=== PATIENT | male | born 1955 | race Caucasian/White ===

== ENCOUNTER 2022-02-07 07:24 | Inpatient (IN) | payer MEDICAID, SELFPAY ==
[2022-02-07] VITALS (9 sets, daily range): BP systolic 113–130; BP diastolic 58–74; PULSE 81–94; RESP 16–25; TEMP 36.3–37.2; O2SAT 95–100; BMI 18.4; BMI 17.6
--- NOTE | 2022-02-07 07:59 | CT_ITS ---
HISTORY: weakness, difficulty ambulating. TECHNIQUE: Multiple axial images were obtained of the head without intravenous contrast. A radiation dose optimization technique was used for this scan. 246 images. COMPARISON: None. FINDINGS: BRAIN PARENCHYMA: Multiple foci and zones of low attenuation in the bilateral cerebral white matter compatible with chronic small vessel ischemic gliosis. No acute intra-axial hemorrhage identified. CSF SPACES: Mild generalized volume loss. No midline shift or other significant mass effect. No acute extra-axial hemorrhage seen. OTHER: Intact calvarium. No significant air fluid levels in the paranasal sinuses or mastoid air cells. Unremarkable orbits. CT/Brain/Head without Contrast IMPRESSION: No acute intracranial process identified. Mild chronic involutional and white matter changes. Electronically Signed: Cora Brantley MD at 8:39 EST ,
--- NOTE | 2022-02-07 08:00 | EKG12_ITS ---
Test Reason : WEAKNESS Blood Pressure : / mmHG Vent. Rate : 089 BPM Atrial Rate : 089 BPM P-R Int : 160 ms QRS Dur : 100 ms QT Int : 440 ms P-R-T Axes : 078 060 065 degrees QTc Int : 535 ms Sinus rhythm with Fusion complexes Nonspecific ST abnormality Prolonged QT Abnormal ECG No previous ECGs available Confirmed by SPARKLE GIRON, JENNIFER ([id number]), scientific publications editor ARAM MCKINNON ([id number]) on 02/10/2022 8:38:30 AM Referred By: NOHEMI Confirmed By:JENNIFER VILLAGRAN MD
[2022-02-07] MEDS: 0.9% Normal Saline 1,000 ML 1000 ML IV (08:09)
--- NOTE | 2022-02-07 08:13 | EDS_ITS ---
HPI History of Present Illness Chief Complaint: Weakness Informant: patient and family Narrative Narrative: Patient is a 66-year-old male with no known medical history presenting with generalized weakness. Patient got sick around January 24 per his grandson. Tim blunt states he had a flulike illness. For the past few days he has had significantly increased weakness, decreased oral intake and now cannot walk. Patient lives with his significant other. She had the grandson take him in today. Patient previously been refusing any medical care. Yesterday and his bottom tooth fell out. Patient is a history of pretty significant dental issues and they are not sure if he has some type of dental infection. Patient's had decreased urine output as well as decreased bowel movements. Currently denies any pain. No fevers reported. There has been a mild cough. Patient drinks a sixpack of beer daily and uses marijuana. Denies any history of anything similar to this in the past. No other complaints at this time. No report of any falls. [facility] Medical History Substance abuse Home Medications NK 02/07/22 [History Last Taken Unknown] Allergy/AdvReac Type Severity Reaction Status Date / Time No Known Allergies Allergy Verified 02/07/22 07:25 Surgical History no surgical history Social History Smoking Status: Never smoker ROS ROS ED Constitutional Constitutional ED: Denies chills or fever(s) Eyes Eyes: Denies change in vision ENT ENT ED: Reports other Details: dental pain ; Denies rhinorrhea or sore throat Cardiovascular Cardiovascular: Denies chest pain or palpitations Respiratory/Chest Respiratory/Chest: Reports cough; Denies dyspnea Gastrointestinal Gastrointestinal: Reports constipation; Denies abdominal pain, nausea or vomiting Genitourinary Genitourinary ED: Reports other Details: decreased urination Musculoskeletal Musculoskeletal: Reports other Details: right lower leg swelling ; Denies arthralgias or myalgias Integumentary Denies rash Neurologic Neurologic: Reports weakness; Denies headache(s) or paresthesias Psychiatric Psychiatric: Denies anxiety Hematologic/Lymphatic Hematologic/Lymphatic: Denies easy bleeding or easy bruising EXAM Physical Exam Const Vital Signs: 02/07/22 07:26 02/07/22 07:31 02/07/22 07:31 Temperature 98.5 F 98.5 F Temperature Source Temporal Temporal Pulse Rate 93 94 Respiratory Rate 25 H 17 Respiratory Effort Normal Non-Labored Respiratory Pattern Normal Blood Pressure 130/65 H 113/65 Blood Pressure Mean 86 81 Pulse Ox 100 100 Oxygen Delivery Method Room Air Room Air Positive cachectic and unkempt General Appearance ED: unkempt and cachectic Nutritional Appearance: cachectic HEENT Reports dry mucous membranes HEENT Narrative: Cerumen impaction bilaterally. Significantly poor dentition with multiple missing teeth. Dried blood in the mouth but no obvious source of bleeding. No obvious dental abscess. No jaw swelling appreciated. Sublingual mucosa is soft. Negative for trauma Mouth ED: Yes dry mucous membranes Mouth: dry mucous membranes Eyes PERRL and EOMs intact bilaterally Eyes Narrative: Conjunctival injection bilaterally Neck supple and no JVD Resp normal respiratory effort Resp Narrative: Diminished breath sounds at the bases Cardio regular rate, regular rhythm and no murmurs GI normal to inspection, nondistended, normoactive bowel sounds and non-tender Back/Spine no CVA tenderness Extremity Extremity Narrative: Mild nonpitting edema of the right lower extremity which is asymmetric. Neuro Neuro Narrative: No focal deficits appreciated. Sensorium / Orientation: alert and orientation impaired Motor Exam: general weakness Psych mental status grossly normal Appearance: unkempt Skin no rashes or lesions noted and no wounds MDM MDM MDM Narrative Medical decision making narrative: Patient evaluated with generalized weakness as well as decreased oral intake. On exam patient is cachectic and extremely dehydrated appearing. He smells of old urine and is unkempt. Concern for infection however given his altered mental status stroke, intracranial hemorrhage and electrolyte abnormalities are also on the differential. CBC is largely normal as well as is his PT and PTT. BMP unremarkable. Lactate is elevated at 2.9 and patient's procalcitonin is elevated at 2.67. Chest x-ray interpreted myself as well as radiology shows mild atelectasis or inflammation of the right lung base. Given his recent illness and weakness I am concerned for possible aspiration pneumonia. He will be covered with antibiotics for this. In addition urinalysis is highly consistent with infection and urine culture is sent. Patient is given IV fluids in the ER. He does have asymmetric swelling of his leg and a venous duplex obtained which is negative for any acute process. Patient be mated for IV antibiotics, hydration and further evaluation of his debility/weakness. Patient and family agreeable this plan of care. Lab Data Attestation: I reviewed the patient's lab results. Labs: Laboratory Results - last 24 hr 02/07/22 02/07/22 02/07/22 07:50 07:50 07:50 WBC 8.0 RBC 4.90 Hgb 15.9 Hct 48.4 MCV 98.8 H MCH 32.4 H MCHC 32.9 RDW Std Deviation 49.6 H RDW Coeff of [place] 13.6 Plt Count 264 MPV 10.1 Immature Gran % (Auto) 0.500 Neut % (Auto) 72.3 H Lymph % (Auto) 14.4 L Hardy % (Auto) 10.7 H Eos % (Auto) 1.3 Baso % (Auto) 0.8 Absolute Neuts (auto) 5.8 Absolute Lymphs (auto) 1.15 Nucleated RBC % 0 PT 13.9 INR 1.1 APTT 25.7 Sodium 140 Potassium 3.5 Chloride 107 Carbon Dioxide 21.0 Anion Gap 12 BUN 24 H Creatinine 0.99 Estim Creat Clear Calc 65.79 Est GFR (MDRD) Af Amer 97 Est GFR (MDRD) Non-Af 81 BUN/Creatinine Ratio 24.2 H Glucose 129 H Lactic Acid Calcium 9.3 Magnesium Total Bilirubin 1.40 H AST 52 H ALT 41 Alkaline Phosphatase 66 Troponin I High Sens 22 Total Protein 7.7 Albumin 2.7 L Globulin 5.0 H Albumin/Globulin Ratio 0.5 L Procalcitonin Urine Color Urine Clarity Urine pH Ur Specific [place] Urine Protein Urine Glucose (UA) Urine Ketones Urine Occult Blood Urine Nitrite Urine Bilirubin Urine Urobilinogen Ur Leukocyte Esterase Urine RBC Urine WBC Ur Squamous Epith Cells Urine Bacteria Urine Mucus 02/07/22 02/07/22 02/07/22 07:50 07:50 07:50 WBC RBC Hgb Hct MCV MCH MCHC RDW Std Deviation RDW Coeff of [place] Plt Count MPV Immature Gran % (Auto) Neut % (Auto) Lymph % (Auto) Hardy % (Auto) Eos % (Auto) Baso % (Auto) Absolute Neuts (auto) Absolute Lymphs (auto) Nucleated RBC % PT INR APTT Sodium Potassium Chloride Carbon Dioxide Anion Gap BUN Creatinine Estim Creat Clear Calc Est GFR (MDRD) Af Amer Est GFR (MDRD) Non-Af BUN/Creatinine Ratio Glucose Lactic Acid 2.9 H* Calcium Magnesium 2.8 H Total Bilirubin AST ALT Alkaline Phosphatase Troponin I High Sens Total Protein Albumin Globulin Albumin/Globulin Ratio Procalcitonin 0.67 H Urine Color Urine Clarity Urine pH Ur Specific [place] Urine Protein Urine Glucose (UA) Urine Ketones Urine Occult Blood Urine Nitrite Urine Bilirubin Urine Urobilinogen Ur Leukocyte Esterase Urine RBC Urine WBC Ur Squamous Epith Cells Urine Bacteria Urine Mucus 02/07/22 08:07 WBC RBC Hgb Hct MCV MCH MCHC RDW Std Deviation RDW Coeff of [place] Plt Count MPV Immature Gran % (Auto) Neut % (Auto) Lymph % (Auto) Hardy % (Auto) Eos % (Auto) Baso % (Auto) Absolute Neuts (auto) Absolute Lymphs (auto) Nucleated RBC % PT INR APTT Sodium Potassium Chloride Carbon Dioxide Anion Gap BUN Creatinine Estim Creat Clear Calc Est GFR (MDRD) Af Amer Est GFR (MDRD) Non-Af BUN/Creatinine Ratio Glucose Lactic Acid Calcium Magnesium Total Bilirubin AST ALT Alkaline Phosphatase Troponin I High Sens Total Protein Albumin Globulin Albumin/Globulin Ratio Procalcitonin Urine Color Yellow Urine Clarity Clear Urine pH 7.0 Ur Specific [place] 1.015 Urine Protein 30 H Urine Glucose (UA) Normal Urine Ketones 15 H Urine Occult Blood 10 H Urine Nitrite Positive H Urine Bilirubin 3 H Urine Urobilinogen 4 H Ur Leukocyte Esterase 500 H Urine RBC 0-5 SEEN Urine WBC 5-10 SEEN Ur Squamous Epith Cells 0 SEEN Urine Bacteria 1+ Urine Mucus 0 SEEN Radiography Diagnostic Testing: Clinical Impression(s) from Imaging Studies Brain CT 02/07/22 07:59 IMPRESSION: No acute intracranial process identified. Mild chronic involutional and white matter changes. Electronically Signed: Cora Brantley MD at 8:39 EST Reading Location ID and State: [facility] / [place] Tel , Service support , Venous Doppler Study 02/07/22 08:15 Interpretation Summary Deep veins of the right lower extremity are patent and compressible segmentally. There is no evidence of right lower extremity deep vein thrombosis. The right great saphenous vein appears patent and compressible segmentally. Ordering Physician: Lorelei Mckenna Referring Physician: NO PCP Performed By: Jackie Goyal, GLORIA, RVT Chest X-Ray 02/07/22 08:26 IMPRESSION: Mild atelectasis or inflammation in the right lung base. Electronically Signed: Cora Brantley MD at 8:36 EST , Rhythm Strip Rhythm Strip: Sinus Rhythm Rate: 89 Ectopy: None EKG Initial EKG: Attestation: I personally reviewed and interpreted this EKG as follows: Interpretation: Sinus Rhythm Comments: Normal sinus rhythm at a rate of 89 with some fusion complexes Nonspecific ST segment changes Prolonged QTC of 535 Compared to prior EKG QTC is mildly more prolonged, improvement of T wave inversions in 1 and aVL Discharge Plan Dx/Rx/DC Orders Clinical Impression: Failure to thrive, Pneumonia, Acute UTI, Alcohol dependence Disposition Disposition: Acute Care [facility] Discharge Date/Time: 02/07/22 10:52
--- NOTE | 2022-02-07 08:15 | VDLE_ITS ---
Reason For Study: RLE SWELLING RIGHT GSV is normal. CFV is compressible, spontaneous, phasic, competent and demonstrates normal augmentation. FV is compressible, spontaneous, phasic, competent and demonstrates normal augmentation. POP V is compressible, spontaneous, phasic, competent and demonstrates normal augmentation. T/P Trunk is compressible. PTV is compressible. RT PerV is compressible. Procedure This is a venous duplex using B-mode, color flow and spectral Doppler. Exam performed in department. A preliminary report was called and/or faxed to ED. VL/Venous Duplex US, Unilateral Interpretation Summary Deep veins of the right lower extremity are patent and compressible segmentally . There is no evidence of right lower extremity deep vein thrombosis. The right great sapheno us vein appears patent and compressible segmentally. Ordering Physician: Lorelei Mckenna Referring Physician: NO PCP Performed By: Jackie Goyal, GLORIA, RVT
[2022-02-07 08:25] LABS: Mucous, Urine 0 SEEN /hpf (<or=2+); Squamous Epithelial Cells - UA 0 SEEN /hpf (0-5)
[2022-02-07 08:25] LABS: Absolute Lymphocyte Count 1.15 X10^3/uL (0.83-4.51); Absolute Neutrophil Count 5.8 X10^3/uL (2.0-7.7); Basophil# 0.06 X10^3/uL; Basophil% 0.8 % (0-1); Eosinophils% 1.3 % (0-5); Hematocrit 48.4 % (40-54); Hemoglobin 15.9 g/dL (13.0-16.5); Lymphocyte # 1.15 X10^3/ul (0.83-4.51); Lymphocyte % 14.4 % (19-41); Mean Corp Hgb Conc 32.9 g/dL (32-36); Mean Corpuscular Hgb 32.4 pg (27.0-32.0); Mean Corpuscular Volume 98.8 fL (80-94); Mean Platelet Vol. 10.1 fl (6.2-12.0); Monocyte# 0.85 X10^3/uL; Monocyte% 10.7 % (0-10); NRBC Flagged by Analyzer 0 % (0-5); Neutrophil # 5.78 X10^3/uL (2.7-7.7); Neutrophil % 72.3 % (47-70); Platelet Count 264 K/mm3 (150-450); RBC Distribution Width CV 13.6 % (11.6-14.6); RBC Distribution Width SD 49.6 fl (35.1-43.9)
--- NOTE | 2022-02-07 08:26 | RAD_ITS ---
HISTORY: Weakness, confusion, dental infection. TECHNIQUE: XR Chest 1 View. COMPARISON: None. FINDINGS: CARDIOMEDIASTINAL BORDERS: Cardiac silhouette within normal limits in size. Mediastinal contour unremarkable. LUNGS: Mild opacity in the right mid to lower lung. PLEURA: No pleural effusion or pneumothorax seen. OSSEOUS STRUCTURES: Unremarkable. RAD/Chest 1 View (Portable) IMPRESSION: Mild atelectasis or inflammation in the right lung base. Electronically Signed: Cora Brantley MD at 8:36 EST ,
--- NOTE | 2022-02-07 08:30 | NURSING ---
CONTACTED AL FOR AUTHORIZATION 02/07/22 8:30 AM
[2022-02-07 08:38] LABS: Color, Urine Yellow (Yellow); Glucose, Dipstick Normal (Normal); Ketone-Dipstick 15 mg/dl (Negative); Leukocyte Esterase-Dipstick 500 /ul (Negative); Nitrite-Dipstick Positive (Negative); Occult Blood-Urine 10 /ul (Negative); Protein-Dipstick 30 mg/dl (Negative); Specific Gravity, Urine 1.015 (1.002-1.030); Urine Clarity Clear (Clear); Urine Urobilinogen 4 mg/dl (Normal)
--- NOTE | 2022-02-07 08:44 | NURSING ---
[place] NOTIFICATION I.D. NUMBER [id number]
[2022-02-07 08:49] LABS: ALB/GLOB Ratio 0.5 RATIO (0.9-2.4); AST(SGOT) 52 U/L (15-37); Alanine Aminotransfer ALT/SGPT 41 U/L (16-61); Albumin, Serum 2.7 g/dL (3.2-5.0); Alkaline Phosphatase 66 U/L (45-117); Anion Gap 12 (5-15); BUN 24 mg/dL (7-18); BUN/Creat Ratio 24.2 RATIO (10-20); Calcium,Total 9.3 mg/dL (8.5-10.1); Chloride 107 mmol/L (98-107); Creatinine, Serum 0.99 mg/dL (0.70-1.30); EST Glomerular Filtration Rate 81 mL/min (>60); Est Glom Filt Rate - Afr Amer 97 mL/min (>60); Estimated Creatinine Clearance 65.79 ml/min; Glucose 129 mg/dL (74-106); Potassium 3.5 mmol/L (3.5-5.1); Protein, Total 7.7 g/dL (6.4-8.2); Sodium Level 140 mmol/L (136-145); Troponin-I HS 22 pg/mL (3.0-78.0)
[2022-02-07 08:51] LABS: Bacteria 1+ /hpf (None Seen); Red Blood Cells-Urine 0-5 SEEN /hpf (0-5); Urine Bilirubin Dipstick 3 mg/dL (Negative); White Blood Cells 5-10 SEEN /hpf (0-5)
[2022-02-07 08:54] LABS: Procalcitonin 0.67 ng/mL (0.00-0.09)
[2022-02-07 08:58] LABS: Lactic Acid 2.9 mmol/L (0.4-1.9)
--- NOTE | 2022-02-07 09:01 | NURSING ---
CALL FROM LAB, LACTIC ACID 2.9 , DR. FLORES AWARE
[2022-02-07 09:16] LABS: International Normalized Ratio 1.1; Partial Thromboplast Time 25.7 Seconds (24.1-36.2); Prothrombin Time (Protime)PT. 13.9 SECONDS (11.7-14.9)
--- NOTE | 2022-02-07 10:03 | PCM.HP.STD ---
HPI - General General Date of Admission: 02/07/22 Date of Service: 02/07/22 Chief Complaint: Confused, awake, generalized weakness, not able to walk. Chronic alcoholic HPI Narrative GIBSON MANZANARES, is a 66 M in poor general health was brought to EMS for generalized weakness, not able to walk, decreased oral intake and sick since January 24 as per his grandson. Patient had flulike symptoms, increased cough for about 2 to 3 weeks, mainly dry. Patient also has bad oral hygiene with dental caries. His bottom teeth fell out yesterday. Patient denies burning micturition but has decreased urine output and bowel movement. Patient also not able to stand up or walk. Further history cannot be obtained as patient very confused disoriented to time and place. He can only tell his name. As per ER physician, no reported history of fall. Vitals in the ED was in acceptable limit. Breathing nonlabored. Labs EKG reviewed Social history:Patient drinks 6 pack of beer daily and uses marijuana. Denies smoking. Family history denies family history of chronic alcohol dependence or cancer but patient is not in good mental status therefore is not reliable [facility] Medical History Substance abuse Home Medications NK 02/07/22 [History Last Taken Unknown] Allergy/AdvReac Type Severity Reaction Status Date / Time No Known Allergies Allergy Verified 02/07/22 07:25 Surgical History no surgical history Social History Smoking Status: Never smoker ROS ROS Narrative 14 complete ROS is incomplete and unobtainable except as mentioned in HPI as patient is very confused, disoriented to time and place. He wanted to hold his name and year. He denies burning micturition. He denies hematemesis melena or GI bleed. Review of Systems ROS Unobtainable: due to encephalopathy and due to mental condition Vital Signs Vital Signs Vital Signs: 02/07/22 07:26 02/07/22 07:31 02/07/22 07:31 Temperature 98.5 F 98.5 F Temperature Source Temporal Temporal Pulse Rate 93 94 Respiratory Rate 25 H 17 Respiratory Effort Normal Non-Labored Respiratory Pattern Normal Blood Pressure 130/65 H 113/65 Blood Pressure Mean 86 81 Pulse Ox 100 100 Oxygen Delivery Method Room Air Room Air Weight Weight: 136 lb 0.403 oz Body Mass Index (BMI) 18.4 Physical Exam Narrative Physical exam General: Awake, oriented x1, looks generalized illness and fatigued, worn out. Severe protein calorie malnutrition HEENT: Atraumatic, PERRLA, EOMI, Normocephalic Oral: Oral mucosa dry. No lower jaw or teeth are only few number with gingivitis and dental caries. Bad odor. Mild redness in hard and soft palate. Neck: Supple, No JVD, Negative Carotid Bruits Lungs: Air entry diminished in bilateral lung bases. No crepitation/rhonchi Cardiovascular: Regular rate, Regular Rhythm, Normal S1, Normal S2, No murmurs Abdomen: Scaphoid abdomen, bowel Sounds Present, Soft, Non Tender, Non-Distended : No renal angle tenderness. No suprapubic tenderness. Extremities: No edema, Capillary Refill Less than 3 Seconds Skin: No rashes, No breakdown Musculoskeletal: ROM restricted. Muscle strength 4/5 at major joints of lower extremities. No Tenderness to Palpation of Joints or Extremities Neurological: Cranial nerves II-XII grossly intact, DTR 2+/4, complete neuro exam unobtainable Psych/Mental Status: Flat affect. Blank look Results Lab / Micro Data Result Diagrams: 02/07/22 07:50 02/07/22 07:50 Labs: Laboratory Results - last 24 hr 02/07/22 07:50: WBC 8.0, RBC 4.90, Hgb 15.9, Hct 48.4, MCV 98.8 H, MCH 32.4 H, MCHC 32.9, RDW Std Deviation 49.6 H, RDW Coeff of [place] 13.6, Plt Count 264, MPV 10.1, Immature Gran % (Auto) 0.500, Neut % (Auto) 72.3 H, Lymph % (Auto) 14.4 L, [place] % (Auto) 10.7 H, Eos % (Auto) 1.3, Baso % (Auto) 0.8, Absolute Neuts (auto) 5.8, Absolute Lymphs (auto) 1.15, Nucleated RBC % 0 02/07/22 07:50: PT 13.9, INR 1.1, APTT 25.7 02/07/22 07:50: Sodium 140, Potassium 3.5, Chloride 107, Carbon Dioxide 21.0, Anion Gap 12, BUN 24 H, Creatinine 0.99, Estim Creat Clear Calc 65.79, Est GFR (MDRD) Af Amer 97, Est GFR (MDRD) Non-Af 81, BUN/Creatinine Ratio 24.2 H, Glucose 129 H, Calcium 9.3, Total Bilirubin 1.40 H, AST 52 H, ALT 41, Alkaline Phosphatase 66, Troponin I High Sens 22, Total Protein 7.7, Albumin 2.7 L, Globulin 5.0 H, Albumin/Globulin Ratio 0.5 L 02/07/22 07:50: Lactic Acid 2.9 H* 02/07/22 07:50: Procalcitonin 0.67 H 02/07/22 08:07: Urine Color Yellow, Urine Clarity Clear, Urine pH 7.0, Ur Specific [place] 1.015, Urine Protein 30 H, Urine Glucose (UA) Normal, Urine Ketones 15 H, Urine Occult Blood 10 H, Urine Nitrite Positive H, Urine Bilirubin 3 H, Urine Urobilinogen 4 H, Ur Leukocyte Esterase 500 H, Urine RBC 0-5 SEEN, Urine WBC 5-10 SEEN, Ur Squamous Epith Cells 0 SEEN, Urine Bacteria 1+, Urine Mucus 0 SEEN Micro: Microbiology 02/07/22 08:07 Nasal Secretion SARS-CoV-2 & FLU Antigen (Rapid) - Final Radiology Impression Brain CT 02/07/22 07:59 IMPRESSION: No acute intracranial process identified. Mild chronic involutional and white matter changes. Electronically Signed: Cora Brantley MD at 8:39 EST Reading Location ID and State: [facility] / [place] Tel , Service support , Chest X-Ray 02/07/22 08:26 IMPRESSION: Mild atelectasis or inflammation in the right lung base. Electronically Signed: Cora Brantley MD at 8:36 EST , Assessment & Plan Assessment/Plan (1) Pneumonia: (2) Alcohol withdrawal: (3) Failure to thrive: PLAN: Plan This is 66-year-old gentleman with history of chronic alcohol use, not taking care of himself failure to thrive admitted with mild URI symptoms and chest x-ray finding of right lung base CAP 1. Right lower lung infiltrate most likely aspiration pneumonia/community-acquired pneumonia: Patient is being admitted to PCU. Patient is very dehydrated IV fluid normal saline plus IV KCl 100 mL/h for 2 L. Started on IV Unasyn and Zithromax for suspicion of aspiration pneumonia/CAP. Pneumonia work-up was ordered. Lactic acid is 2.9, procalcitonin 0.68. Clinically, labs and radiological does not support diagnosis of sepsis. 2. Chronic alcohol use, dependence and hyperorality of acute alcohol withdrawal: Currently. CIWA score is 4. Patient on CIWA protocol. If CIWA score high will start on phenobarbital. Folic acid thiamine and IV fluid. 3. Asymptomatic bacteriuria, low suspicion of UTI: UA shows 1+ bacteria, WBC 5-10 cells LE 500 and nitrite positive. Urine culture is ordered. Patient denies burning micturition or increased frequency or urgency. Decreased urine output. Due to dehydration/hypovolemia. Urine culture is ordered. 4. Failure to thrive: Patient not able to keep his legs sustained up for 1 to 2 seconds. Moderate muscle atrophy, loss of subcutaneous fat and frontotemporal fat, costovertebral and intervertebral muscles. Severe protein calorie malnutrition 5. Carious tooth/bad mouth, high risk of aspiration. Speech therapy ordered. On Unasyn VTE prophylaxis: Moderate risk on Lovenox 40 mg subcu daily CODE STATUS: Full code unverified Microbiology Past 72 Hours 02/07/22 08:07 Nasal Secretion SARS-CoV-2 & FLU Antigen (Rapid) - Final Laboratory Results 02/07/22 07:50: WBC 8.0, RBC 4.90, Hgb 15.9, Hct 48.4, MCV 98.8 H, MCH 32.4 H, MCHC 32.9, RDW Std Deviation 49.6 H, RDW Coeff of [place] 13.6, Plt Count 264, MPV 10.1, Immature Gran % (Auto) 0.500, Neut % (Auto) 72.3 H, Lymph % (Auto) 14.4 L, [place] % (Auto) 10.7 H, Eos % (Auto) 1.3, Baso % (Auto) 0.8, Absolute Neuts (auto) 5.8, Absolute Lymphs (auto) 1.15, Nucleated RBC % 0 02/07/22 07:50: PT 13.9, INR 1.1, APTT 25.7 02/07/22 07:50: Sodium 140, Potassium 3.5, Chloride 107, Carbon Dioxide 21.0, Anion Gap 12, BUN 24 H, Creatinine 0.99, Estim Creat Clear Calc 65.79, Est GFR (MDRD) Af Amer 97, Est GFR (MDRD) Non-Af 81, BUN/Creatinine Ratio 24.2 H, Glucose 129 H, Calcium 9.3, Total Bilirubin 1.40 H, AST 52 H, ALT 41, Alkaline Phosphatase 66, Troponin I High Sens 22, Total Protein 7.7, Albumin 2.7 L, Globulin 5.0 H, Albumin/Globulin Ratio 0.5 L 02/07/22 07:50: Lactic Acid 2.9 H* 02/07/22 07:50: Procalcitonin 0.67 H 02/07/22 07:50: Magnesium 2.8 H 02/07/22 08:07: Urine Color Yellow, Urine Clarity Clear, Urine pH 7.0, Ur Specific [place] 1.015, Urine Protein 30 H, Urine Glucose (UA) Normal, Urine Ketones 15 H, Urine Occult Blood 10 H, Urine Nitrite Positive H, Urine Bilirubin 3 H, Urine Urobilinogen 4 H, Ur Leukocyte Esterase 500 H, Urine RBC 0-5 SEEN, Urine WBC 5-10 SEEN, Ur Squamous Epith Cells 0 SEEN, Urine Bacteria 1+, Urine Mucus 0 SEEN 02/07/22 11:35: MRSA (PCR) Pending 02/07/22 12:39: Lactic Acid 1.8 Clinical Impression(s) from Imaging Studies Brain CT 02/07/22 07:59 IMPRESSION: No acute intracranial process identified. Mild chronic involutional and white matter changes. Electronically Signed: Cora Brantley MD at 8:39 EST , Venous Doppler Study 02/07/22 08:15 Interpretation Summary Deep veins of the right lower extremity are patent and compressible segmentally. There is no evidence of right lower extremity deep vein thrombosis. The right great saphenous vein appears patent and compressible segmentally. Chest X-Ray 02/07/22 08:26 IMPRESSION: Mild atelectasis or inflammation in the right lung base. Charges/Coding Visit Charges Inpatient E&M: 34185 Init Hosp L3 Procedures Hospitalists Procedures: 06334 Advncd Care Plan 30 Min
[2022-02-07 10:18] LABS: Magnesium 2.8 mg/dL (1.6-2.6)
[2022-02-07] MEDS: 0.9% Saline Lock 10 ML Syringe IV ×3 (11:32→18:27)
[2022-02-07 12:21] LABS: Reflex Lactate? Y
[2022-02-07 13:25] LABS: Lactic Acid 1.8 mmol/L (0.4-1.9)
--- NOTE | 2022-02-07 14:29 | CASEMGMT ---
Per WAITER/WAITRESS CAFETERIA patient needs a dental it systems analyst consultant due to his teeth being black and concerns regarding aspirations. Bella BOCANEGRA
[2022-02-07 14:41] LABS: M R Staph aureus DNA By PCR Negative (Negative); Probe Check PASS; Specimen Processing Control PASS
[2022-02-07] MEDS: Thiamine Hydrochloride 100 MG Tablet PO (16:28)
[2022-02-07] MEDS: Folic Acid 1 MG Tablet PO (16:28)
[2022-02-07] MEDS: Ensure Plus High Protein 120 ML LIQUID PO (16:29)
[2022-02-08] VITALS (10 sets, daily range): BP systolic 116–124; BP diastolic 63–75; PULSE 62–100; RESP 14–20; TEMP 36.3–36.9; O2SAT 94–98
--- NOTE | 2022-02-08 03:54 | PCM.PN.BLA ---
Progress Note Patient with urinary retention. Reportedly earlier on he was straight cathed. Now with 700 mL of urine on bladder scan. Patient unable to urinate. We will start patient on Flomax. Cope catheter ordered.
[2022-02-08 04:59] LABS: Absolute Lymphocyte Count 0.66 X10^3/uL (0.83-4.51); Absolute Neutrophil Count 6.6 X10^3/uL (2.0-7.7); Basophil# 0.03 X10^3/uL; Basophil% 0.4 % (0-1); Eosinophil# 0.03 X10^3/uL; Eosinophils% 0.4 % (0-5); Hematocrit 45.3 % (40-54); Hemoglobin 15.1 g/dL (13.0-16.5); Lymphocyte # 0.66 X10^3/ul (0.83-4.51); Lymphocyte % 8.1 % (19-41); Mean Corp Hgb Conc 33.3 g/dL (32-36); Mean Corpuscular Hgb 33.2 pg (27.0-32.0); Mean Corpuscular Volume 99.6 fL (80-94); Mean Platelet Vol. 9.3 fl (6.2-12.0); Monocyte# 0.71 X10^3/uL; Monocyte% 8.8 % (0-10); NRBC Flagged by Analyzer 0 % (0-5); Neutrophil # 6.64 X10^3/uL (2.7-7.7); Neutrophil % 81.8 % (47-70); Platelet Count 233 K/mm3 (150-450); RBC Distribution Width CV 13.8 % (11.6-14.6); RBC Distribution Width SD 50.2 fl (35.1-43.9); Red Blood Count 4.55 M/mm3 (4.6-6.2); White Blood Count 8.1 K/mm3 (4.4-11.0)
[2022-02-08 05:41] LABS: Anion Gap 9 (5-15); BUN 22 mg/dL (7-18); Calcium,Total 8.9 mg/dL (8.5-10.1); Chloride 112 mmol/L (98-107); Creatinine, Serum 0.76 mg/dL (0.70-1.30); EST Glomerular Filtration Rate 110 mL/min (>60); Est Glom Filt Rate - Afr Amer 133 mL/min (>60); Estimated Creatinine Clearance 84.17 ml/min; Glucose 89 mg/dL (74-106); Potassium 3.7 mmol/L (3.5-5.1); Sodium Level 143 mmol/L (136-145); Thyroid Stim Hormone (TSH) 1.88 uIU/mL (0.358-3.74)
[2022-02-08] MEDS: guaiFENesin 1,200 MG Tablet 1200 MG PO ×2 (08:06→21:43)
[2022-02-08] MEDS: Azithromycin 250 MG Tablet 500 MG PO (08:06)
[2022-02-08] MEDS: Folic Acid 1 MG Tablet PO (08:06)
[2022-02-08] MEDS: Thiamine Hydrochloride 100 MG Tablet PO (08:06)
--- NOTE | 2022-02-08 08:50 | PN.HOSP_ITS ---
Subjective Subjective Follow-up for generalized weakness, pneumonia and poor general health. Patient looks mild dehydrated. Objective Data Objective Data Vital Signs: Vital Signs Temp Pulse Resp BP Pulse Ox O2 Del Method 98.4 F 93 20 H 117/66 97 Room Air 02/08/22 07:57 02/08/22 07:57 02/08/22 07:57 02/08/22 07:57 02/08/22 07:57 02/08/22 07:57 Oxygen Delivery Method Room Air Weight: 133 lb 9.602 oz Body Mass Index (BMI) 17.6 Intake & Output: Intake and Output for Last 24 Hours 02/06/22 02/07/22 02/08/22 23:59 23:59 23:59 Intake Total 2494.0 / 2494.0 1239 / 1239 Output Total 575 / 575 700 / 700 Balance 1919.0 / 1919.0 539 / 539 Medical Nutrition Assessment Dietitian: Malnutrition Criteria Met Start: 02/07/22 16:43 Freq: Status: Active Protocol: Document 02/07/22 12:43 HARPREET (Rec: 02/07/22 16:44 [facility] [id number]) Nutrition Malnutrition Evidence of Malnutrition Exists Yes Malnutrition (severe): Acute Illness/Injury Evidenced By Suboptimal Energy Intake ( Severe),Physical Changes ( Severe) Clinical Problem Acute Disease or Injury Related Malnutrition Etiology related to physiological changes causing decreased oral intakes Signs/Symptoms as evidenced by suspected decreased oral intakes less than 50% of estimated energy needs for greater than 5 days as well as moderate to severe muscle and fat wasting per NFPA (buccal, orbital, temples , clavicles, etc.). Status Active Problem Recommendation Dietitian Recommendations/Changes Continue with Regular - General diet. Order Ensure Plus High Protein 120mL 4x/day with medpass to help increase oral intakes. Will assess oral intakes upon f/u and implement additional interventions as needed. Lab / Micro Data Result Diagrams: 02/08/22 04:07 02/08/22 04:07 Labs: Laboratory Results - last 24 hr 02/07/22 07:50: PT 13.9, INR 1.1, APTT 25.7 02/07/22 07:50: Sodium 140, Potassium 3.5, Chloride 107, Carbon Dioxide 21.0, Anion Gap 12, BUN 24 H, Creatinine 0.99, Estim Creat Clear Calc 65.79, Est GFR (MDRD) Af Amer 97, Est GFR (MDRD) Non-Af 81, BUN/Creatinine Ratio 24.2 H, Glucose 129 H, Calcium 9.3, Total Bilirubin 1.40 H, AST 52 H, ALT 41, Alkaline Phosphatase 66, Troponin I High Sens 22, Total Protein 7.7, Albumin 2.7 L, Globulin 5.0 H, Albumin/Globulin Ratio 0.5 L 02/07/22 07:50: Lactic Acid 2.9 H* 02/07/22 07:50: Procalcitonin 0.67 H 02/07/22 07:50: Magnesium 2.8 H 02/07/22 08:07: Urine Color Yellow, Urine Clarity Clear, Urine pH 7.0, Ur Specific [place] 1.015, Urine Protein 30 H, Urine Glucose (UA) Normal, Urine Ketones 15 H, Urine Occult Blood 10 H, Urine Nitrite Positive H, Urine Bilirubin 3 H, Urine Urobilinogen 4 H, Ur Leukocyte Esterase 500 H, Urine RBC 0-5 SEEN, Urine WBC 5-10 SEEN, Ur Squamous Epith Cells 0 SEEN, Urine Bacteria 1+, Urine Mucus 0 SEEN 02/07/22 11:35: MRSA (PCR) Negative 02/07/22 12:39: Lactic Acid 1.8 02/08/22 04:07: WBC 8.1, RBC 4.55 L, Hgb 15.1, Hct 45.3, MCV 99.6 H, MCH 33.2 H, MCHC 33.3, RDW Std Deviation 50.2 H, RDW Coeff of [place] 13.8, Plt Count 233, MPV 9.3, Immature Gran % (Auto) 0.500, Neut % (Auto) 81.8 H, Lymph % (Auto) 8.1 L, Chase % (Auto) 8.8, Eos % (Auto) 0.4, Baso % (Auto) 0.4, Absolute Neuts (auto) 6.6, Absolute Lymphs (auto) 0.66 L, Nucleated RBC % 0 02/08/22 04:07: Sodium 143, Potassium 3.7, Chloride 112 H, Carbon Dioxide 22.0, Anion Gap 9, BUN 22 H, Creatinine 0.76, Estim Creat Clear Calc 84.17, Est GFR (MDRD) Af Amer 133, Est GFR (MDRD) Non-Af 110, BUN/Creatinine Ratio 29.0 H, Glucose 89, Calcium 8.9, Folate 12.00, TSH 1.88 Micro: Microbiology 02/07/22 11:16 Mucosa - Nasopharyngeal Respiratory Panel (PCR) - Final 02/07/22 08:15 Urine, Clean Catch Streptococcus pneumoniae Antigen (M - Final 02/07/22 08:15 Urine, Random Legionella Antigen - Final 02/07/22 08:07 Nasal Secretion SARS-CoV-2 & FLU Antigen (Rapid) - Final Radiography Diagnostic Testing: Radiology Impression Venous Doppler Study 02/07/22 08:15 Interpretation Summary Deep veins of the right lower extremity are patent and compressible segmentally. There is no evidence of right lower extremity deep vein thrombosis. The right great saphenous vein appears patent and compressible segmentally. Rhythm Strip Rhythm Strip: Sinus Rhythm Rate: 89 Ectopy: None Physical Exam Narrative Physical exam General: Awake, oriented x1, looks generalized illness and fatigued, worn out. Severe protein calorie malnutrition HEENT: Atraumatic, PERRLA, EOMI, Normocephalic Oral: Oral mucosa dry. White patches seen at soft palate. No lower jaw or teeth are only few number with gingivitis and dental caries. Neck: Supple, No JVD, Negative Carotid Bruits Lungs: Air entry diminished in bilateral lung bases. No crepitation/rhonchi Cardiovascular: Regular rate, Regular Rhythm, Normal S1, Normal S2, No murmurs Abdomen: Scaphoid abdomen, bowel Sounds Present, Soft, Non Tender, Non-Distended : No renal angle tenderness. No suprapubic tenderness. Extremities: No edema, Capillary Refill Less than 3 Seconds Skin: No rashes, No breakdown Musculoskeletal: ROM restricted. Muscle strength 4/5 at major joints of lower extremities. No Tenderness to Palpation of Joints or Extremities Neurological: Cranial nerves II-XII grossly intact, DTR 2+/4, complete neuro exam unobtainable Psych/Mental Status: Flat affect. Blank look Assessment & Plan Assessment/Plan (1) Pneumonia: (2) Alcohol withdrawal: (3) Failure to thrive: PLAN: Plan This is 66-year-old gentleman with history of chronic alcohol use, not taking care of himself failure to thrive admitted with mild URI symptoms and chest x-ray finding of right lung base CAP 1. Right lower lung infiltrate most likely aspiration pneumonia/community- acquired pneumonia: Patient is being admitted to PCU. Patient is very dehydrated IV fluid normal saline plus IV KCl 100 mL/h for 2 L. Started on IV Unasyn and Zithromax for suspicion of aspiration pneumonia/CAP. Pneumonia work- up was ordered. Lactic acid is 2.9, procalcitonin 0.68. Clinically, labs and radiological does not support diagnosis of sepsis. 02/08: Urinary antigens and respiratory panel negative. Will continue IV antibiotics. Speech therapy evaluation. 2. Chronic alcohol use, dependence and hyperorality of acute alcohol withdrawal: Currently. CIWA score is 4. Patient on CIWA protocol. If CIWA score high will start on phenobarbital. Folic acid thiamine and IV fluid. 3. Asymptomatic bacteriuria, low suspicion of UTI: UA shows 1+ bacteria, WBC 5- 10 cells LE 500 and nitrite positive. Urine culture is ordered. Patient denies burning micturition or increased frequency or urgency. Decreased urine output. Due to dehydration/hypovolemia. Urine culture is ordered. 4. Failure to thrive: Patient not able to keep his legs sustained up for 1 to 2 seconds. Moderate muscle atrophy, loss of subcutaneous fat and frontotemporal fat, costovertebral and intervertebral muscles. Severe protein calorie malnutrition 5. Carious tooth/bad mouth, high risk of aspiration. Speech therapy ordered. On Unasyn 02/08 On nystatin started VTE prophylaxis: Moderate risk on Lovenox 40 mg subcu daily CODE STATUS: Full code unverified Microbiology Past 72 Hours 02/07/22 11:16 Mucosa - Nasopharyngeal Respiratory Panel (PCR) - Final 02/07/22 08:15 Urine, Clean Catch Streptococcus pneumoniae Antigen (M - Final 02/07/22 08:15 Urine, Random Legionella Antigen - Final 02/07/22 08:07 Nasal Secretion SARS-CoV-2 & FLU Antigen (Rapid) - Final Laboratory Results 02/07/22 07:50: PT 13.9, INR 1.1, APTT 25.7 02/07/22 07:50: Magnesium 2.8 H 02/07/22 11:35: MRSA (PCR) Negative 02/07/22 12:39: Lactic Acid 1.8 02/08/22 04:07: WBC 8.1, RBC 4.55 L, Hgb 15.1, Hct 45.3, MCV 99.6 H, MCH 33.2 H, MCHC 33.3, RDW Std Deviation 50.2 H, RDW Coeff of [place] 13.8, Plt Count 233, MPV 9.3, Immature Gran % (Auto) 0.500, Neut % (Auto) 81.8 H, Lymph % (Auto) 8.1 L, Chase % (Auto) 8.8, Eos % (Auto) 0.4, Baso % (Auto) 0.4, Absolute Neuts (auto) 6.6, Absolute Lymphs (auto) 0.66 L, Nucleated RBC % 0 02/08/22 04:07: Sodium 143, Potassium 3.7, Chloride 112 H, Carbon Dioxide 22.0, Anion Gap 9, BUN 22 H, Creatinine 0.76, Estim Creat Clear Calc 84.17, Est GFR (MDRD) Af Amer 133, Est GFR (MDRD) Non-Af 110, BUN/Creatinine Ratio 29.0 H, Glucose 89, Calcium 8.9, Folate 12.00, TSH 1.88 02/08/22 04:07: Vitamin B12 Pending, Vitamin D 25-Hydroxy Pending Urinary antigens, respiratory panel are negative. Clinical Impression(s) from Imaging Studies Brain CT 02/07/22 07:59 IMPRESSION: No acute intracranial process identified. Mild chronic involutional and white matter changes. Electronically Signed: Cora Brantley MD at 8:39 EST Reading Location ID and State: [address] [place] [address] Tel , Service support , Venous Doppler Study 02/07/22 08:15 Interpretation Summary Deep veins of the right lower extremity are patent and compressible segmentally. There is no evidence of right lower extremity deep vein thrombosis. The right great saphenous vein appears patent and compressible segmentally. Chest X-Ray 02/07/22 08:26 IMPRESSION: Mild atelectasis or inflammation in the right lung base. Charges/Coding Visit Charges Inpatient E&M: 19055 Subs Hosp L2
[2022-02-08] MEDS: NYSTATIN 500,000 UNIT/5 ML UDC 500000 UNIT PO ×4 (11:01→21:43)
[2022-02-08] MEDS: 0.9% Saline Lock 10 ML Syringe IV (11:06)
[2022-02-08] MEDS: Dext 5%-0.45% NS 1,000 ML 75 ML IV (11:56)
[2022-02-08] MEDS: Tamsulosin HCl 0.4 MG Capsule PO (17:51)
[2022-02-08] MEDS: Ensure Plus High Protein 120 ML LIQUID PO ×2 (17:51→21:47)
[2022-02-09] VITALS (12 sets, daily range): BP systolic 105–126; BP diastolic 61–74; PULSE 70–82; RESP 14–18; TEMP 36.4–36.7; O2SAT 95–99
[2022-02-09] MEDS: Dext 5%-0.45% NS 1,000 ML 75 ML IV (01:38)
[2022-02-09 06:06] LABS: Anion Gap 4 (5-15); BUN 15 mg/dL (7-18); BUN/Creat Ratio 22.2 RATIO (10-20); Calcium,Total 8.6 mg/dL (8.5-10.1); Chloride 114 mmol/L (98-107); Creatinine, Serum 0.68 mg/dL (0.70-1.30); EST Glomerular Filtration Rate 126 mL/min (>60); Est Glom Filt Rate - Afr Amer 152 mL/min (>60); Estimated Creatinine Clearance 95.78 ml/min; Glucose 101 mg/dL (74-106); Potassium 3.3 mmol/L (3.5-5.1); Sodium Level 143 mmol/L (136-145)
[2022-02-09 07:54] LABS: Vitamin B12 240 pg/mL (211-911); Vitamin D,25 Hydroxy 9.3 ng/mL
[2022-02-09] MEDS: guaiFENesin 1,200 MG Tablet 1200 MG PO ×2 (08:32→22:55)
[2022-02-09] MEDS: Thiamine Hydrochloride 100 MG Tablet PO (08:32)
[2022-02-09] MEDS: NYSTATIN 500,000 UNIT/5 ML UDC 500000 UNIT PO ×4 (08:32→22:55)
[2022-02-09] MEDS: Folic Acid 1 MG Tablet PO (08:32)
[2022-02-09] MEDS: Azithromycin 250 MG Tablet 500 MG PO (08:33)
--- NOTE | 2022-02-09 10:00 | CASEMGMT ---
RN CM Face to Face with patient for initial transition planning/care coordination assessment. RN CM introduced self and role at [facility]. Patient lying in bed, alert and slightly confused, girlfriend at bedside. Patient and girlfriend willing to participate in assessment and are able to answer all questions appropriately. Care providers, pharmacy, and demographics verified. Patient wishes to discharge home. RN CM discussed progress with therapy and need for assistance x2 and inability to stand at this time. RN CM discussed levels of care at discharge including HHC vs SNF. Will monitor patient's progress with therapy. Patient and girlfriend states they have no further needs or concerns at this time. CM to follow for discharge planning needs that may arise. PCP: None, patient to be provided with PCP resources Specialists: none Preferred Pharmacy: [facility] Insurance: [place], TOÑO verified and no coverage at this time. SW to assist with Medicaid application Prescription Benefit: none Living Will/HPOA: none LNOK: Girlfriend, grandson Living Arrangements: Patient lives with girlfriend of 35 years in a 2 story home with bed and bath on first floor, 4 steps and railing to enter the home. Girlfriend states patient is independent at home. Transportation: self, girlfriend DME/HHC: Patient has grab bars at home. Patient denies previous HHC or SNF. Patient smokes marijuana daily. Patient was consuming alcohol daily until 2 weeks ago, patient was drinking 6-8 beers daily. Disposition Plan: TBD, will monitor course of treatment and progress with therapy. Tamika ORTIZ, RN, CM
[2022-02-09 10:14] LABS: Phosphorus 2.5 mg/dL (2.5-4.9)
[2022-02-09] MEDS: Potassium Chloride Oral Tablet 20 MEQ 40 MEQ PO ×2 (10:31→13:24)
--- NOTE | 2022-02-09 10:44 | CASEMGMT ---
TOÑO called TÑOO Bergman at [facility] in [place] and left her a voice mail requesting a return call. TOÑO is checking to see if patient is service connected at all in the event he needs prison. Lindsey CRUZ
--- NOTE | 2022-02-09 11:02 | CASEMGMT ---
TOÑO received a return phone call from Pacheco with the [facility]. Patient is not in the [place] medical system at all. Pacheco will send TOÑO an application for [place] medical services. TOÑO will talk with patient about this and also give him a Medicaid application. Lindsey CRUZ
--- NOTE | 2022-02-09 13:47 | CASEMGMT ---
TOÑO met with patient. TOÑO introduced self and role at [facility]. SW let patient know he does not have any medical benefits through the [facility]. TOÑO asked patient if he has any other insurance coverage and he does not. TOÑO explained to patient SW will have to help him apply for Medicaid and then he will go to a custodial on pending Medicaid. Patient was okay with TOÑO calling his significant other to assist with the application. TOÑO called Andreina, patient's significnato
--- NOTE | 2022-02-09 14:15 | CASEMGMT ---
SW met with patient. TOÑO introduced self and role at [facility]. SW let patient know he does not have any medical benefits through the [facility]. SW asked patient if he has any other insurance coverage and he does not. TOÑO explained to patient SW will have to help him apply for Medicaid and then he will go to a penitentiary on pending Medicaid. Patient was okay with SW calling his significant other to assist with the application. SW called Andreina, patient's significant other. Andreina said that patient gets $700 a month from the state. TOÑO explained to Andreina that SW spoke with the [facility] and patient is not eligible for any medical services through the [facility]. TOÑO told Andreina SW will have to assist patient in completing a Medicaid application. Andreina did give SW her income information as they both live in the same home. TOÑO told her there is another form that she would need to sign as an authorized major account representative for patient. This would allow [employer] to talk with her to assist in getting patient on Medicaid. She said she would be in tomorrow to sign. Plan: Patient will have to go to a halfway facility for rehab on pending Medicaid. Lindsey CRUZ
--- NOTE | 2022-02-09 15:24 | PN.HOSP_ITS ---
Subjective Subjective Follow-up for pneumonia. Patient looks more awake and alert. He denies alcohol withdrawal symptoms including anxiety/panic attack, tremors, hallucinations or delusions. Objective Data Objective Data Vital Signs: Vital Signs Temp Pulse Resp BP Pulse Ox O2 Del Method 97.9 F 82 14 105/61 99 Room Air 02/09/22 12:30 02/09/22 12:30 02/09/22 12:30 02/09/22 12:30 02/09/22 12:30 02/09/22 15:09 Oxygen Delivery Method Room Air Weight: 136 lb 0.403 oz Body Mass Index (BMI) 17.6 Intake & Output: Intake and Output for Last 24 Hours 02/07/22 02/08/22 02/09/22 23:59 23:59 23:59 Intake Total 2494.0 / 2494.0 1583 / 1583 1816 / 1816 Output Total 575 / 575 1175 / 1325 575 / 575 Balance 1919.0 / 1919.0 408 / 258 1241 / 1241 Medical Nutrition Assessment Dietitian: Malnutrition Criteria Met Start: 02/07/22 16:43 Freq: Status: Active Protocol: Document 02/07/22 12:43 HARPREET (Rec: 02/07/22 16:44 [facility] [id number]) Nutrition Malnutrition Evidence of Malnutrition Exists Yes Malnutrition (severe): Acute Illness/Injury Evidenced By Suboptimal Energy Intake ( Severe),Physical Changes ( Severe) Clinical Problem Acute Disease or Injury Related Malnutrition Etiology related to physiological changes causing decreased oral intakes Signs/Symptoms as evidenced by suspected decreased oral intakes less than 50% of estimated energy needs for greater than 5 days as well as moderate to severe muscle and fat wasting per NFPA (buccal, orbital, temples , clavicles, etc.). Status Active Problem Recommendation Dietitian Recommendations/Changes Continue with Regular - General diet. Order Ensure Plus High Protein 120mL 4x/day with medpass to help increase oral intakes. Will assess oral intakes upon f/u and implement additional interventions as needed. Lab / Micro Data Result Diagrams: 02/08/22 04:07 02/09/22 04:34 Labs: Laboratory Results - last 24 hr 02/08/22 04:07: Vitamin B12 240, Vitamin D 25-Hydroxy 9.3 02/09/22 04:34: Sodium 143, Potassium 3.3 L, Chloride 114 H, Carbon Dioxide 25.0, Anion Gap 4 L, BUN 15, Creatinine 0.68 L, Estim Creat Clear Calc 95.78, Est GFR (MDRD) Af Amer 152, Est GFR (MDRD) Non-Af 126, BUN/Creatinine Ratio 22.2 H, Glucose 101, Calcium 8.6 02/09/22 04:34: Phosphorus 2.5 Micro: Microbiology 02/07/22 08:07 Urine, Catheterized Urine Culture - Final Culture exhibits no growth. 02/07/22 11:16 Mucosa - Nasopharyngeal Respiratory Panel (PCR) - Final 02/07/22 08:15 Urine, Clean Catch Streptococcus pneumoniae Antigen (M - Final 02/07/22 08:15 Urine, Random Legionella Antigen - Final 02/07/22 08:07 Nasal Secretion SARS-CoV-2 & FLU Antigen (Rapid) - Final Rhythm Strip Rhythm Strip: Sinus Rhythm Rate: 89 Ectopy: None Physical Exam Narrative Physical exam General: Awake, oriented x3, Severe protein calorie malnutrition HEENT: Atraumatic, PERRLA, EOMI, Normocephalic Oral: Oral mucosa moist. Oral hygiene looks better. Missing teeth over lower jaw with gingivitis and dental caries. Neck: Supple, No JVD, Negative Carotid Bruits Lungs: Air entry diminished in bilateral lung bases. No crepitation/rhonchi Cardiovascular: Regular rate, Regular Rhythm, Normal S1, Normal S2, No murmurs Abdomen: Scaphoid abdomen, bowel Sounds Present, Soft, Non Tender, Non-Distended : No renal angle tenderness. No suprapubic tenderness. Extremities: No edema, Capillary Refill Less than 3 Seconds Skin: No rashes, No breakdown Musculoskeletal: ROM restricted. Muscle strength 4/5 at major joints of lower extremities. No Tenderness to Palpation of Joints or Extremities Neurological: Cranial nerves II-XII grossly intact, DTR 2+/4, complete neuro exam unobtainable Psych/Mental Status: Flat affect. Assessment & Plan Assessment/Plan (1) Pneumonia: (2) Alcohol withdrawal: (3) Failure to thrive: PLAN: Plan This is 66-year-old gentleman with history of chronic alcohol use, not taking care of himself failure to thrive admitted with mild URI symptoms and chest x-ray finding of right lung base CAP 1. Right lower lung infiltrate most likely aspiration pneumonia/community- acquired pneumonia: Patient is being admitted to PCU. Patient is very dehydrated IV fluid normal saline plus IV KCl 100 mL/h for 2 L. Started on IV Unasyn and Zithromax for suspicion of aspiration pneumonia/CAP. Pneumonia work- up was ordered. Lactic acid is 2.9, procalcitonin 0.68. Clinically, labs and radiological does not support diagnosis of sepsis. 02/08: Urinary antigens and respiratory panel negative. Will continue IV antibiotics. Speech therapy evaluation. 02/09: Speech therapy evaluation. Discontinue Zithromax as he had 3 dosages. Continue Unasyn 2. Chronic alcohol use, dependence and hyperorality of acute alcohol withdrawal: Currently. CIWA score is 4. Patient on CIWA protocol. If CIWA score high will start on phenobarbital. Folic acid thiamine and IV fluid. 02/09: Patient does not have acute alcohol withdrawal symptoms. CIWA score is low. 3. Asymptomatic bacteriuria: UA shows 1+ bacteria, WBC 5-10 cells LE 500 and nitrite positive. Patient denies burning micturition or increased frequency or urgency. Decreased urine output. Due to dehydration/hypovolemia. Urine culture is ordered. 02/09: Urine culture showed no growth. UTI ruled out. 4. Failure to thrive: Patient not able to keep his legs sustained up for 1 to 2 seconds. Moderate muscle atrophy, loss of subcutaneous fat and frontotemporal fat, costovertebral and intervertebral muscles. Severe protein calorie malnutrition 02/09: Continue PT and OT. 5. Carious tooth/bad mouth, high risk of aspiration. Speech therapy ordered. On Unasyn 02/08 On nystatin started VTE prophylaxis: Moderate risk on Lovenox 40 mg subcu daily CODE STATUS: Full code unverified Clinical Impression(s) from Imaging Studies Brain CT 02/07/22 07:59 IMPRESSION: No acute intracranial process identified. Mild chronic involutional and white matter changes. Electronically Signed: Cora Brantley MD at 8:39 EST , Venous Doppler Study 02/07/22 08:15 Interpretation Summary Deep veins of the right lower extremity are patent and compressible segmentally. There is no evidence of right lower extremity deep vein thrombosis. The right great saphenous vein appears patent and compressible segmentally. Chest X-Ray 02/07/22 08:26 IMPRESSION: Mild atelectasis or inflammation in the right lung base. Charges/Coding Visit Charges Inpatient E&M: 51084 Subs Hosp L2
[2022-02-09] MEDS: Tamsulosin HCl 0.4 MG Capsule PO (17:38)
[2022-02-09] MEDS: 0.9% Saline Lock 10 ML Syringe IV (17:43)
--- NOTE | 2022-02-09 19:00 | NURSING ---
emergency documentation.
--- NOTE | 2022-02-09 19:00 | PCA ---
EMERGENCY DOCUMENTATION
[2022-02-10 02:59] VITALS: PULSE 74
[2022-02-10 05:00] VITALS: BP 120/65; PULSE 79; RESP 18; TEMP 36.6; O2SAT 97
[2022-02-10 07:01] VITALS: PULSE 69
[2022-02-10 07:34] LABS: Anion Gap 5 (5-15); BUN 9 mg/dL (7-18); BUN/Creat Ratio 13.7 RATIO (10-20); Calcium,Total 8.6 mg/dL (8.5-10.1); Chloride 115 mmol/L (98-107); Creatinine, Serum 0.66 mg/dL (0.70-1.30); EST Glomerular Filtration Rate 130 mL/min (>60); Est Glom Filt Rate - Afr Amer 157 mL/min (>60); Estimated Creatinine Clearance 99.64 ml/min; Glucose 100 mg/dL (74-106); Potassium 3.9 mmol/L (3.5-5.1); Sodium Level 142 mmol/L (136-145)
[2022-02-10 07:44] VITALS: O2SAT 96
[2022-02-10] MEDS: guaiFENesin 1,200 MG Tablet 1200 MG PO (08:40)
[2022-02-10] MEDS: Folic Acid 1 MG Tablet PO (08:40)
[2022-02-10] MEDS: NYSTATIN 500,000 UNIT/5 ML UDC 500000 UNIT PO (08:40)
[2022-02-10] MEDS: Thiamine Hydrochloride 100 MG Tablet PO (08:40)
[2022-02-10] MEDS: Enoxaparin 40 MG/0.4 ML Syringe SC (08:42)
--- NOTE | 2022-02-10 09:48 | PN.HOSP_ITS ---
Subjective Subjective Patient is on baseline. He is not able to stand up or put his weight on the legs. Very weak. Objective Data Objective Data Vital Signs: Vital Signs Temp Pulse Resp BP Pulse Ox O2 Del Method 97.8 F 79 18 120/65 96 Room Air 02/10/22 05:00 02/10/22 05:00 02/10/22 05:00 02/10/22 05:00 02/10/22 07:44 02/10/22 07:44 Oxygen Delivery Method Room Air Weight: 137 lb 5.568 oz Body Mass Index (BMI) 17.6 Intake & Output: Intake and Output for Last 24 Hours 02/08/22 02/09/22 02/10/22 23:59 23:59 23:59 Intake Total 1583 / 1583 3628 / 3628 224 / 224 Output Total 1175 / 1325 825 / 825 150 / 150 Balance 408 / 258 2803 / 2803 74 / 74 Medical Nutrition Assessment Dietitian: Malnutrition Criteria Met Start: 02/07/22 16:43 Freq: Status: Active Protocol: Document 02/07/22 12:43 [facility] (Rec: 02/07/22 16:44 [facility] [id number]) Nutrition Malnutrition Evidence of Malnutrition Exists Yes Malnutrition (severe): Acute Illness/Injury Evidenced By Suboptimal Energy Intake ( Severe),Physical Changes ( Severe) Clinical Problem Acute Disease or Injury Related Malnutrition Etiology related to physiological changes causing decreased oral intakes Signs/Symptoms as evidenced by suspected decreased oral intakes less than 50% of estimated energy needs for greater than 5 days as well as moderate to severe muscle and fat wasting per NFPA (buccal, orbital, temples , clavicles, etc.). Status Active Problem Recommendation Dietitian Recommendations/Changes Continue with Regular - General diet. Order Ensure Plus High Protein 120mL 4x/day with medpass to help increase oral intakes. Will assess oral intakes upon f/u and implement additional interventions as needed. Lab / Micro Data Result Diagrams: 02/08/22 04:07 02/10/22 06:30 Labs: Laboratory Results - last 24 hr 02/09/22 04:34: Phosphorus 2.5 02/10/22 06:30: Sodium 142, Potassium 3.9, Chloride 115 H, Carbon Dioxide 22.0, Anion Gap 5, BUN 9, Creatinine 0.66 L, Estim Creat Clear Calc 99.64, Est GFR (MDRD) Af Amer 157, Est GFR (MDRD) Non-Af 130, BUN/Creatinine Ratio 13.7, Glucose 100, Calcium 8.6 Micro: Microbiology 02/07/22 08:07 Urine, Catheterized Urine Culture - Final Culture exhibits no growth. 02/07/22 11:16 Mucosa - Nasopharyngeal Respiratory Panel (PCR) - Final 02/07/22 08:15 Urine, Clean Catch Streptococcus pneumoniae Antigen (M - Final 02/07/22 08:15 Urine, Random Legionella Antigen - Final 02/07/22 08:07 Nasal Secretion SARS-CoV-2 & FLU Antigen (Rapid) - Final Rhythm Strip Rhythm Strip: Sinus Rhythm Rate: 89 Ectopy: None Physical Exam Narrative Physical exam General: Awake, oriented x3, Severe protein calorie malnutrition HEENT: Atraumatic, PERRLA, EOMI, Normocephalic Oral: Oral mucosa moist. Oral hygiene looks better. Missing teeth over lower jaw with gingivitis and dental caries. Neck: Supple, No JVD, Negative Carotid Bruits Lungs: Air entry diminished in bilateral lung bases. No crepitation/rhonchi Cardiovascular: Regular rate, Regular Rhythm, Normal S1, Normal S2, No murmurs Abdomen: Scaphoid abdomen, bowel Sounds Present, Soft, Non Tender, Non-Distended : No renal angle tenderness. No suprapubic tenderness. Extremities: No edema, Capillary Refill Less than 3 Seconds Skin: No rashes, No breakdown Musculoskeletal: ROM restricted. Muscle strength 4/5 at major joints of lower extremities. Not able to stand up, very debilitated Neurological: Cranial nerves II-XII grossly intact, DTR 2+/4, complete neuro exam unobtainable Psych/Mental Status: Flat affect. Assessment & Plan Assessment/Plan (1) Pneumonia: (2) Alcohol withdrawal: (3) Failure to thrive: PLAN: Plan This is 66-year-old gentleman with history of chronic alcohol use, not taking care of himself failure to thrive admitted with mild URI symptoms and chest x-ray finding of right lung base CAP 1. Right lower lung infiltrate most likely aspiration pneumonia/community- acquired pneumonia: Patient is being admitted to PCU. Patient is very dehydrated IV fluid normal saline plus IV KCl 100 mL/h for 2 L. Started on IV Unasyn and Zithromax for suspicion of aspiration pneumonia/CAP. Pneumonia work- up was ordered. Lactic acid is 2.9, procalcitonin 0.68. Clinically, labs and radiological does not support diagnosis of sepsis. 02/08: Urinary antigens and respiratory panel negative. Will continue IV antibiotics. Speech therapy evaluation. 02/09: Speech therapy evaluation. Discontinue Zithromax as he had 3 dosages. Continue Unasyn 02/10: Continue Unasyn. 2. Chronic alcohol use, dependence and hyperorality of acute alcohol withdrawal: Currently. CIWA score is 4. Patient on CIWA protocol. If CIWA score high will start on phenobarbital. Folic acid thiamine and IV fluid. 02/09: Patient does not have acute alcohol withdrawal symptoms. CIWA score is low. 3. Asymptomatic bacteriuria: UA shows 1+ bacteria, WBC 5-10 cells LE 500 and nitrite positive. Patient denies burning micturition or increased frequency or urgency. Decreased urine output. Due to dehydration/hypovolemia. Urine culture is ordered. 02/09: Urine culture showed no growth. UTI ruled out. 4. Failure to thrive: Patient not able to keep his legs sustained up for 1 to 2 seconds. Moderate muscle atrophy, loss of subcutaneous fat and frontotemporal fat, costovertebral and intervertebral muscles. Severe protein calorie malnutrition 02/09: Continue PT and OT. 02/10: Debility due to severe malnutrition, low muscle mass. Will need placement. 5. Carious tooth/bad mouth, high risk of aspiration. Speech therapy ordered. On Unasyn 02/08 On nystatin started VTE prophylaxis: Moderate risk on Lovenox 40 mg subcu daily CODE STATUS: Full code unverified Clinical Impression(s) from Imaging Studies Brain CT 02/07/22 07:59 IMPRESSION: No acute intracranial process identified. Mild chronic involutional and white matter changes. Electronically Signed: Cora Brantley MD at 8:39 EST , Venous Doppler Study 02/07/22 08:15 Interpretation Summary Deep veins of the right lower extremity are patent and compressible segmentally. There is no evidence of right lower extremity deep vein thrombosis. The right great saphenous vein appears patent and compressible segmentally. Chest X-Ray 02/07/22 08:26 IMPRESSION: Mild atelectasis or inflammation in the right lung base. Charges/Coding Visit Charges Inpatient E&M: 27096 Subs Hosp L2
[2022-02-10 09:50] VITALS: BP 130/82; PULSE 82; RESP 12; TEMP 36.7; O2SAT 96
--- NOTE | 2022-02-10 10:47 | DCINST_ITS ---
Discharge Instructions Diet Discharge Diet: Low fat / Low cholesterol and 2000 mg Sodium Diet Activity Discharge Activity: May Not Drive Weight Bearing Status: Weight bearing as tolerated Dressing / Incision Call your doctor if you observe: Fever of 101 or Higher, Coldness, Increased Pain, Numbness or Tingling, Change in Color, Inability to urinate, Inability to have a bowel movement, Shortness of breath, Dizziness, Fainting spells, Swelling in the ankles, Chest pain, Prolonged hiccupping, Increased palpitations (irregular heartbeat), Calf discomfort and Uncontrolled pain Follow Up Care Test Results: Test results from this visit will be discussed in further detail at your follow- up appointment, if applicable. Discharge Plan Admission Admit Date/Time: 02/07/22 10:03 Attending Provider: Rojelio Hull Primary Care Provider: Care PhysicianLaureen Primary Discharge Orders/Prescriptions Prescriptions: New nystatin 100,000 unit/mL Suspension 500,000 unit PO 4X/DAY Qty: 200 0RF cyanocobalamin (vitamin B-12) 500 mcg Tablet 1,000 mcg PO BREAKFAST Qty: 30 0RF folic acid 1 mg Tablet 1 mg PO BREAKFAST Qty: 30 2RF ergocalciferol (vitamin D2) [Vitamin D2] 1,250 mcg (50,000 unit) Capsule 1.25 mg PO Q7D Qty: 4 1RF Mucus Relief ER 1,200 mg Tablet Extended Release 12hr 1,200 mg PO BID Qty: 14 0RF thiamine HCl (vitamin B1) [Vitamin B-1] 100 mg Tablet 100 mg PO BREAKFAST Qty: 30 2RF tamsulosin 0.4 mg Capsule 0.4 mg PO DAILY@1730 Qty: 30 0RF amoxicillin-pot clavulanate 875-125 mg tablet 1 tab PO BID Qty: 7 0RF Rx Instructions: starting in evening on 02/10/22 Referrals / Follow Up: Care Physician,No Primary [Primary Care Provider] - Within 2 Weeks Disposition Disposition (needs filled in before D/C Order can be placed): Home, Self Care
[2022-02-10] MEDS: Ergocalciferol 1.25 MG (50, 000 UNIT) Capsule PO (11:17)
[2022-02-10] MEDS: Cyanocobalamin 500 MCG Tablet 1000 MCG PO (11:17)
--- NOTE | 2022-02-10 12:54 | PCM.DC.SUM ---
Providers Date of Admission: 02/07/22 Date of Discharge: 02/10/22 Primary Care Physician: No Primary Care Phys Reason For Visit: GEN WEAKNESS Diagnosis Discharge Diagnosis (1) Pneumonia: Status: Acute Code(s): J18.9 - Pneumonia, unspecified organism (2) Alcohol withdrawal: Status: Acute Code(s): F10.939 - Alcohol use, unspecified with withdrawal, unspecified (3) Failure to thrive: Status: Acute Plan This is 66-year-old gentleman with history of chronic alcohol use, not taking care of himself failure to thrive admitted with mild URI symptoms and chest x-ray finding of right lung base CAP 1. Right lower lung infiltrate most likely aspiration pneumonia/community-acquired pneumonia: Patient is being admitted to PCU. Patient is very dehydrated IV fluid normal saline plus IV KCl 100 mL/h for 2 L. Started on IV Unasyn and Zithromax for suspicion of aspiration pneumonia/CAP. Pneumonia work-up was ordered. Lactic acid is 2.9, procalcitonin 0.68. Clinically, labs and radiological does not support diagnosis of sepsis. 02/08: Urinary antigens and respiratory panel negative. Will continue IV antibiotics. Speech therapy evaluation. 02/09: Speech therapy evaluation. Discontinue Zithromax as he had 3 dosages. Continue Unasyn 02/10: Patient is discharged home. Discharged on Augmentin to complete a total of 7 days of antibiotics. 2. Chronic alcohol use, dependence and hyperorality of acute alcohol withdrawal: Currently. CIWA score is 4. Patient on CIWA protocol. If CIWA score high will start on phenobarbital. Folic acid thiamine and IV fluid. 02/09: Patient does not have acute alcohol withdrawal symptoms. CIWA score is low. 02/10: Prescription given for thiamine, folic acid, ergocalciferol and B12. 3. Asymptomatic bacteriuria: UA shows 1+ bacteria, WBC 5-10 cells LE 500 and nitrite positive. Patient denies burning micturition or increased frequency or urgency. Decreased urine output. Due to dehydration/hypovolemia. Urine culture is ordered. 02/09: Urine culture showed no growth. UTI ruled out. 4. Failure to thrive: Patient not able to keep his legs sustained up for 1 to 2 seconds. Moderate muscle atrophy, loss of subcutaneous fat and frontotemporal fat, costovertebral and intervertebral muscles. Severe protein calorie malnutrition 02/09: Continue PT and OT. 02/10: Debility due to severe malnutrition, low muscle mass. Will need placement. 5. Carious tooth/bad mouth, high risk of aspiration. Speech therapy ordered. On Unasyn 02/08 On nystatin started Prescription given for nystatin. VTE prophylaxis: Moderate risk on Lovenox 40 mg subcu daily CODE STATUS: Full code unverified Discharge home. Clinical Impression(s) from Imaging Studies Brain CT 02/07/22 07:59 IMPRESSION: No acute intracranial process identified. Mild chronic involutional and white matter changes. Electronically Signed: Cora Brantley MD at 8:39 EST , Venous Doppler Study 02/07/22 08:15 Interpretation Summary Deep veins of the right lower extremity are patent and compressible segmentally. There is no evidence of right lower extremity deep vein thrombosis. The right great saphenous vein appears patent and compressible segmentally. Chest X-Ray 02/07/22 08:26 IMPRESSION: Mild atelectasis or inflammation in the right lung base. Medications at Discharge Home Medications amoxicillin 875 mg-potassium clavulanate 125 mg tablet 1 tab PO BID #7 tabs 02/10/22 cyanocobalamin (vitamin B-12) 500 mcg tablet 1,000 mcg PO BREAKFAST #30 tabs 02/10/22 ergocalciferol (vitamin D2) 1,250 mcg (50,000 unit) capsule (Vitamin D2) 1.25 mg PO Q7D #4 caps 02/10/22 folic acid 1 mg tablet 1 mg PO BREAKFAST #30 tabs 02/10/22 guaifenesin 1,200 mg tablet, extended release 12 hr (Mucus Relief ER) 1,200 mg PO BID #14 tabs 02/10/22 nystatin 100,000 unit/mL oral suspension 500,000 unit (5 mL) PO 4X/DAY #200 mL 02/10/22 tamsulosin 0.4 mg capsule 0.4 mg PO DAILY@1730 #30 caps 02/10/22 thiamine HCl (vitamin B1) 100 mg tablet (Vitamin B-1) 100 mg PO BREAKFAST #30 tabs 02/10/22 Physical Exam Narrative Patient was seen and examined today. Please see the progress note of the same date. Medical Records Data Medical Nutrition Assessment Dietitian: Malnutrition Criteria Met Start: 02/07/22 16:43 Freq: Status: Active Protocol: Document 02/07/22 12:43 [facility] (Rec: 02/07/22 16:44 [id number] [id number]) Nutrition Malnutrition Evidence of Malnutrition Exists Yes Malnutrition (severe): Acute Illness/Injury Evidenced By Suboptimal Energy Intake ( Severe),Physical Changes ( Severe) Clinical Problem Acute Disease or Injury Related Malnutrition Etiology related to physiological changes causing decreased oral intakes Signs/Symptoms as evidenced by suspected decreased oral intakes less than 50% of estimated energy needs for greater than 5 days as well as moderate to severe muscle and fat wasting per NFPA (buccal, orbital, temples , clavicles, etc.). Status Active Problem Recommendation Dietitian Recommendations/Changes Continue with Regular - General diet. Order Ensure Plus High Protein 120mL 4x/day with medpass to help increase oral intakes. Will assess oral intakes upon f/u and implement additional interventions as needed. Weight / BMI Weight Weight: 137 lb 5.568 oz Body Mass Index (BMI) 17.6 ABG / Lab / Microbiology Data Result Diagrams: 02/08/22 04:07 02/10/22 06:30 Laboratory: Laboratory Results - last 24 hr 02/10/22 06:30: Sodium 142, Potassium 3.9, Chloride 115 H, Carbon Dioxide 22.0, Anion Gap 5, BUN 9, Creatinine 0.66 L, Estim Creat Clear Calc 99.64, Est GFR (MDRD) Af Amer 157, Est GFR (MDRD) Non-Af 130, BUN/Creatinine Ratio 13.7, Glucose 100, Calcium 8.6 Microbiology: Microbiology 02/07/22 08:07 Urine, Catheterized Urine Culture - Final Culture exhibits no growth. 02/07/22 11:16 Mucosa - Nasopharyngeal Respiratory Panel (PCR) - Final 02/07/22 08:15 Urine, Clean Catch Streptococcus pneumoniae Antigen (M - Final 02/07/22 08:15 Urine, Random Legionella Antigen - Final 02/07/22 08:07 Nasal Secretion SARS-CoV-2 & FLU Antigen (Rapid) - Final D/C Instructions Discharge Diet: Low fat / Low cholesterol and 2000 mg Sodium Diet Weight Bearing Status: Weight bearing as tolerated Call your doctor if you observe: Fever of 101 or Higher, Coldness, Increased Pain, Numbness or Tingling, Change in Color, Inability to urinate, Inability to have a bowel movement, Shortness of breath, Dizziness, Fainting spells, Swelling in the ankles, Chest pain, Prolonged hiccupping, Increased palpitations (irregular heartbeat), Calf discomfort and Uncontrolled pain Meaningful Use Info Meaningful Use Diagnoses (Choose all that apply): None applicable Discharge Plan Admission Admit Date/Time: 02/07/22 10:03 Attending Provider: Rojelio Hull Primary Care Provider: Care PhysicianLaureen Primary Discharge Orders/Prescriptions Prescriptions: New nystatin 100,000 unit/mL Suspension 500,000 unit PO 4X/DAY Qty: 200 0RF cyanocobalamin (vitamin B-12) 500 mcg Tablet 1,000 mcg PO BREAKFAST Qty: 30 0RF folic acid 1 mg Tablet 1 mg PO BREAKFAST Qty: 30 2RF ergocalciferol (vitamin D2) [Vitamin D2] 1,250 mcg (50,000 unit) Capsule 1.25 mg PO Q7D Qty: 4 1RF Mucus Relief ER 1,200 mg Tablet Extended Release 12hr 1,200 mg PO BID Qty: 14 0RF thiamine HCl (vitamin B1) [Vitamin B-1] 100 mg Tablet 100 mg PO BREAKFAST Qty: 30 2RF tamsulosin 0.4 mg Capsule 0.4 mg PO DAILY@1730 Qty: 30 0RF amoxicillin-pot clavulanate 875-125 mg tablet 1 tab PO BID Qty: 7 0RF Rx Instructions: starting in evening on 02/10/22 Referrals / Follow Up: Care Physician,No Primary [Primary Care Provider] - Within 2 Weeks Disposition Disposition (needs filled in before D/C Order can be placed): Home, Self Care Charges/Coding Visit Charges Inpatient E&M: 13500 Disch Hosp
--- NOTE | 2022-02-10 13:14 | CASEMGMT ---
TOÑO called Andreina to see if she was going to come in to sign the paper to help patient get Medicaid. Andreina said she is not feeling well. TOÑO then asked Andreina if she knows which nursing facility she would prefer. Andreina said he is not going [place] a [place] [facility] [place]. TOÑO told her he cannot even stand. Andreina said he could not stand before he came into the hospital. TOÑO confirmed with Andreina that she feels she can care for patient. Andreina said between her and her grandson they can take care of patient. Andreina said patient will need to be transported home via cot. TOÑO told her this will be private pay. Andreina said she will pay it. TOÑO told her it would be several hundred dollars and she said that is fine she will pay it. TOÑO told her they may call her and request money up front and she again said that is fine. TOÑO spoke with patient and he is fine going home. He feels safe going home. TOÑO called [facility] and arranged for patient to get picked up at 1330 via cot. TOÑO asked if they call family ahead of time to get payment. Tahira told TOÑO because patient is being discharged from the hospital patient will receive a bill. TOÑO notified RN and secretary specialist of apple picking supervisor time. TOÑO called Tom at [facility] [employer] and made report due to concern for patient's safety. TOÑO also utlized [facility] prescription assistance program. TOÑO went to patient's room to have him sign the Medicaid application. However, patient could not sign. Patient said, I cannot get my hand to work. I can't sign it right now. TOÑO put the application with patient's hospital packet and told him Andreina just needs to help him sign the application and turn it into [employer]. TOÑO called Tom back and let her know this information. Plan: home with significant other. Referral made to [facility] [employer]. No equipment or home health arranged as patient does not have insurance. Lindsey Mercedes [employer]
--- NOTE | 2022-02-10 14:04 | NURSING ---
called poa/paint preparer reviewed dc instructions and follow up care. [facility] pharmacy will bring meds to bed for patient
== END 2022-02-10 14:36 | disposition home or self-care (01) | DRG 177 ==
LOC: ED 08:22 → PCU 10:39
PROVIDERS: Admitting Provider Internal Medicine; Emergency Provider Emergency Medicine; Visit Provider Internal Medicine
DX: J69.0 Pneumonitis due to inhalation of food and vomit (principal); E43 Unspecified severe protein-calorie malnutrition; F10.239 Alcohol dependence with withdrawal, unspecified; J98.11 Atelectasis; Z68.1 Body mass index [BMI] 19.9 or less, adult; K02.9 Dental caries, unspecified; F12.90 Cannabis use, unspecified, uncomplicated; E86.1 Hypovolemia; R62.7 Adult failure to thrive; R82.71 Bacteriuria; Y90.9 Presence of alcohol in blood, level not specified
CPT/HCPCS: 36415; 70450; 71045; 80048; 80053; 81001; 82306; 82607; 82746; 83605; 83735; 84100; 84145; 84443; 84484; 85025; 85610; 85730; 87040; 87086; 87428; 87449; 87633; 87641; 92507; 92526; 92610; 93005; 93971; 97110; 97162; 97530; 97802; 99251; 99285; J7030; A4216; G0463; J0295; J7799